=== PATIENT | female | born 1955 | race Caucasian/White ===

== ENCOUNTER 2018-05-25 15:55 | Emergency (ER) | payer OTHER ==
[2018-05-25 17:04] LABS: ADD MAN DIFF? NO
[2018-05-25 17:08] LABS: WHITE BLOOD COUNT 8.8 10^3/ul (4.8-10.8)
[2018-05-25 17:08] LABS: BASOPHIL # 0.1 10^3/ul (0.0-0.1); EOSINOPHILS # 0.2 10^3/ul (0.0-0.5); EOSINOPHILS % 2.2 % (0.0-7.0); HEMATOCRIT 41.4 % (37.0-47.0); HEMOGLOBIN 13.2 g/dl (12.0-16.0); LYMPHOCYTES # 2.2 10^3/ul (0.8-2.9); LYMPHOCYTES % 25.3 % (15.0-51.0); MEAN CORPUSCULAR HEMOGLOBIN 29.1 pg (29.0-33.0); MEAN CORPUSCULAR HGB CONC 31.9 g/dl (32.0-37.0); MEAN CORPUSCULAR VOLUME 91.2 fl (82.0-101.0); MEAN PLATELET VOLUME 10.3 fl (7.4-10.4); MONOCYTE # 0.6 10^3/ul (0.3-0.9); MONOCYTES % 6.7 % (0.0-11.0); NEUTROPHIL # 5.7 10^3/ul (1.6-7.5); NEUTROPHILS % 64.5 % (39.0-77.0); PLATELET COUNT 221 10^3/UL (140-415); RED BLOOD COUNT 4.54 10^6/ul (4.20-5.40); RED CELL DISTRIBUTION WIDTH 12.7 % (11.5-14.5)
[2018-05-25 17:24] LABS: ADD UMIC YES; UR ASCORBIC ACID NEGATIVE (NEGATIVE); UR BILIRUBIN (Dip) NEGATIVE (NEGATIVE); UR BLOOD (Dip) 2+ mg/dL (NEGATIVE); UR CLARITY CLEAR (CLEAR); UR COLOR STRAW (YELLOW); UR GLUCOSE (Dip) NEGATIVE (NEGATIVE); UR KETONES (Dip) NEGATIVE (NEGATIVE); UR LEUKOCYTE ESTERASE (Dip) NEGATIVE Leu/ul (NEGATIVE); UR NITRITE (Dip) NEGATIVE (NEGATIVE); UR RBC 6 /HPF (0-5); UR SPECIFIC GRAVITY (Dip) 1.014 (1.003-1.030); UR TOTAL PROTEIN (Dip) NEGATIVE (NEGATIVE); UR UROBILINOGEN (Dip) NEGATIVE (NEGATIVE); UR WBC 1 /HPF (0-5)
[2018-05-25 17:26] LABS: ALANINE AMINOTRANSFERASE 24 IU/L (13-69); ALBUMIN 4.5 g/dl (3.3-4.9); ALBUMIN/GLOBULIN RATIO 1.15; ALKALINE PHOSPHATASE 94 IU/L (42-121); ANION GAP 10 (5-13); ASPARTATE AMINO TRANSFERASE 32 IU/L (15-46); BILIRUBIN,INDIRECT 0.3 mg/dl (0-1.1); BILIRUBIN,TOTAL 0.3 mg/dl (0.2-1.3); BLOOD UREA NITROGEN 18 mg/dl (7-20); CALCIUM 9.2 mg/dl (8.4-10.2); CARBON DIOXIDE 26 mmol/L (21-31); CHLORIDE 105 mmol/L (97-110); CREATININE 0.71 mg/dl (0.44-1.00); Estimated GFR > 60 mL/min (>60); GLUCOSE 103 mg/dl (70-220); LIPASE 188 U/L (23-300); POTASSIUM 4.5 mmol/L (3.5-5.1); SODIUM 141 mmol/L (135-144); TOTAL PROTEIN 8.4 g/dl (6.1-8.1)
[2018-05-25] MEDS: ONDANSETRON 4 MG INJ IV (17:26)
[2018-05-25] MEDS: KETOROLAC 30 MG INJ IV (17:26)
== END 2018-05-25 19:24 | disposition home or self-care (01) ==
LOC: E/R 15:55
DX: R10.11 Right upper quadrant pain (principal); I10 Essential (primary) hypertension; E11.9 Type 2 diabetes mellitus without complications; Z79.84 Long term (current) use of oral hypoglycemic drugs
CPT/HCPCS: 74176; 76705; 80053; 81001; 83690; 85025; 96374; 96375; 99285-25

== ENCOUNTER 2018-11-08 10:20 | Observation (INO) | payer OTHER ==
[2018-11-08] MEDS: LACTATED RINGER'S 1,000 ML IV* (06:00)
[2018-11-08] MEDS: CEFAZOLIN 2 GM/50 ML (PMX) 50 ML IVPB (06:00)
[2018-11-08] MEDS ORDERED: GELATIN SIZE 100 SPONGE (11:03)
[2018-11-08] MEDS ORDERED: SUCCINYLCHOLINE CHLORIDE 100 MG/5 ML SYG IV (11:25)
[2018-11-08] MEDS ORDERED: LIDOCAINE 100 MG SYRINGE (11:25)
[2018-11-08] MEDS ORDERED: MIDAZOLAM 1 MG/ML 2 ML INJ (11:25)
[2018-11-08] MEDS ORDERED: PROPOFOL 100 ML (11:25)
[2018-11-08] MEDS ORDERED: CEFAZOLIN 1 GM INJ (11:25)
[2018-11-08] MEDS ORDERED: ROCURONIUM 50 MG INJ (11:25)
[2018-11-08] MEDS ORDERED: SUGAMMADEX SODIUM 200 MG/2 ML VIAL IV (11:26)
[2018-11-08] MEDS ORDERED: DEXAMETHASONE 4 MG/ML 5 ML INJ (11:26)
[2018-11-08] MEDS ORDERED: ONDANSETRON 4 MG INJ (11:26)
[2018-11-08] MEDS ORDERED: FENTAnyl 50 MCG/ML VIAL ×2 (11:27→13:37)
[2018-11-08] MEDS: THROMBIN (BOVINE) 5,000 UNIT VIAL TP ×2 (12:06→13:54)
[2018-11-08] MEDS: HEMOSTATIC MATRIX SYG ZFS ×2 (12:06→13:53)
[2018-11-08] MEDS: BUPIVACAINE 0.5%/EPI (SDV) 30 ML INJ (12:06)
[2018-11-08] MEDS: POLYMYXIN/BACITRACIN 1L IRRIG (12:12)
[2018-11-08] MEDS ORDERED: MEPERIDINE 25 MG INJ IV (12:30)
[2018-11-08] MEDS ORDERED: LABETALOL HCL 20MG INJ IV (12:30)
[2018-11-08] MEDS ORDERED: FENTAnyl 50 MCG/ML VIAL IV ×2 (12:30)
[2018-11-08] MEDS ORDERED: METOCLOPRAMIDE 10 MG INJ IV (12:30)
[2018-11-08] MEDS ORDERED: HYDROmorphONE 1 MG/5 ML IV SYRINGE IV (12:30)
[2018-11-08] MEDS ORDERED: hydrALAzine 20 MG INJ IV (12:30)
[2018-11-08] MEDS ORDERED: ACETAMINOPHEN 325 MG TAB PO (14:30)
[2018-11-08] MEDS ORDERED: NALOXONE (0.4 MG/ML) INJ IV (14:30)
[2018-11-08] MEDS ORDERED: PROCHLORPERAZINE 10 MG TAB PO (14:30)
[2018-11-08] MEDS ORDERED: NACL 0.9% 3 ML SYG IV (14:30)
[2018-11-08] MEDS ORDERED: AL HYDROX/MG HYDROX/SIMETH 30 ML CUP PO (14:30)
[2018-11-08] MEDS ORDERED: HYDROmorphONE 0.5 MG/0.5 ML SYG IV (15:00)
[2018-11-08] MEDS: HYDROmorphONE 1 MG/5 ML IV SYRINGE IV ×2 (15:10→15:28)
[2018-11-08] MEDS: ONDANSETRON 4 MG INJ IV ×3 (15:12→22:44)
[2018-11-08] MEDS: CEFAZOLIN 1 GM/50 ML (PMX) 50 ML IVPB ×2 (17:13→23:20)
[2018-11-08] MEDS ORDERED: GLUCAGON 1 MG INJ IM (19:00)
[2018-11-08] MEDS ORDERED: GLUCOSE GEL 15 GRAM TUBE BUCCAL (19:00)
[2018-11-08] MEDS ORDERED: DEXTROSE 50% 50 ML SYRINGE IV ×2 (19:00)
[2018-11-08] MEDS ORDERED: GLUCOSE GEL 15 GRAM TUBE PO ×2 (19:00)
[2018-11-08] MEDS: SOD CHLORIDE 0.9% 1,000 ML IV ×2 (20:17→23:20)
[2018-11-08] MEDS: HYDROCODONE/APAP (5/325) TAB PO (23:24)
[2018-11-09] MEDS: ACCU-CHEK XX (01:08)
[2018-11-09] MEDS: CEFAZOLIN 1 GM/50 ML (PMX) 50 ML IVPB ×2 (05:17→11:51)
[2018-11-09 05:50] LABS: HEMATOCRIT 34.4 % (37.0-47.0); HEMOGLOBIN 11.4 g/dl (12.0-16.0)
[2018-11-09] MEDS: ONDANSETRON 4 MG INJ IV (06:17)
[2018-11-09] MEDS: HYDROCODONE/APAP (5/325) TAB PO ×3 (06:17→14:10)
[2018-11-09 06:36] LABS: ANION GAP 8 (5-13); BLOOD UREA NITROGEN 13 mg/dl (7-20); CALCIUM 8.8 mg/dl (8.4-10.2); CARBON DIOXIDE 28 mmol/L (21-31); CHLORIDE 105 mmol/L (97-110); CREATININE 0.56 mg/dl (0.44-1.00); Estimated GFR > 60 mL/min (>60); GLUCOSE 114 mg/dl (70-220); POTASSIUM 4.1 mmol/L (3.5-5.1); SODIUM 141 mmol/L (135-144)
[2018-11-09] MEDS: INSULIN ASPART [NOVOLOG] 3 ML PEN SC ×2 (08:26→12:43)
[2018-11-09] MEDS: metFORMIN 500 MG TAB PO (08:26)
[2018-11-09] MEDS: DOCUSATE SODIUM 100 MG CAP PO (08:26)
[2018-11-09] MEDS: LOSARTAN 50 MG TAB PO (08:27)
[2018-11-09] MEDS: SOD CHLORIDE 0.9% 1,000 ML IV (10:13)
== END 2018-11-09 17:50 | disposition home or self-care (01) ==
LOC: SDS 10:20 → REC 15:02 → MS1 16:19
PROVIDERS: Orthopaedic Surgery
DX: M48.062 Spinal stenosis, lumbar region with neurogenic claudication (principal); E66.01 Morbid (severe) obesity due to excess calories; Z68.41 Body mass index [BMI] 40.0-44.9, adult; E11.9 Type 2 diabetes mellitus without complications; I10 Essential (primary) hypertension; E78.00 Pure hypercholesterolemia, unspecified; Z79.84 Long term (current) use of oral hypoglycemic drugs; Z79.4 Long term (current) use of insulin
CPT/HCPCS: 63047; 72100; 80048; 82962; 85014; 85018; 88304; 97116; 97161; 97530